=== PATIENT | female | born 1955 | race Native Hawaiian/Other Pacific Islander ===

== ENCOUNTER 2018-09-27 10:35 | Outpatient (CLI) | payer OTHER | END 2018-09-27 10:36 | disposition home or self-care (01) | LOC: C.LAB 10:35 | DX: I10 Essential (primary) hypertension (principal); E11.9 Type 2 diabetes mellitus without complications; E78.2 Mixed hyperlipidemia; M10.00 Idiopathic gout, unspecified site ==